=== PATIENT | female | born 1985 | race Caucasian/White ===

== ENCOUNTER 2017-01-29 22:36 | Emergency (ER) | payer SELFPAY ==
[~2017-01-29] VITALS: Wt 68.5 kg
[2017-01-30] MEDS ORDERED: ONDANSETRON (ODT) 4 MG TAB ODT STA (00:06)
[2017-01-30] MEDS ORDERED: FAMOTIDINE 20 MG TAB PO ONE (00:30)
[2017-01-30] MEDS ORDERED: LIDOCAINE/MYLANTA 40 ML BTL PO ONE (00:30)
[2017-01-30 00:32] LABS: ADD SCAN DIFF NO
[2017-01-30 00:35] LABS: BASOPHILS % 0.3 % (0.0-2.0); EOSINOPHILS # 0.2 10^3/ul (0.0-0.5); EOSINOPHILS % 1.7 % (0.0-7.0); HEMATOCRIT 39.9 % (37.0-47.0); HEMOGLOBIN 12.5 g/dl (12.0-16.0); LYMPHOCYTES # 2.5 10^3/ul (0.8-2.9); LYMPHOCYTES % 28.4 % (15.0-51.0); MEAN CORPUSCULAR HEMOGLOBIN 27.5 pg (29.0-33.0); MEAN CORPUSCULAR HGB CONC 31.3 g/dl (32.0-37.0); MEAN CORPUSCULAR VOLUME 87.9 fl (82.0-101.0); MEAN PLATELET VOLUME 10.8 fl (7.4-10.4); MONOCYTE # 0.6 10^3/ul (0.3-0.9); MONOCYTES % 6.7 % (0.0-11.0); NEUTROPHIL # 5.5 10^3/ul (1.6-7.5); NEUTROPHILS % 62.4 % (39.0-77.0); PLATELET COUNT 186 10^3/UL (140-415); RED BLOOD COUNT 4.54 10^6/ul (4.20-5.40); RED CELL DISTRIBUTION WIDTH 12.8 % (11.5-14.5); WHITE BLOOD COUNT 8.8 10^3/ul (4.8-10.8)
[2017-01-30 00:53] LABS: ALANINE AMINOTRANSFERASE 70 IU/L (13-69); ALBUMIN 4.7 g/dl (3.3-4.9); ALKALINE PHOSPHATASE 69 IU/L (42-121); ANION GAP 19 (8-16); ASPARTATE AMINO TRANSFERASE 46 IU/L (15-46); BILIRUBIN,INDIRECT 0.1 mg/dl (0-1.1); BILIRUBIN,TOTAL 0.1 mg/dl (0.2-1.3); BLOOD UREA NITROGEN 14 mg/dl (7-20); CALCIUM 9.5 mg/dl (8.4-10.2); CARBON DIOXIDE 27 mmol/L (21-31); CHLORIDE 99 mmol/L (97-110); CREATININE 0.67 mg/dl (0.44-1.00); GLUCOSE 93 mg/dl (70-220); POTASSIUM 4.4 mmol/L (3.5-5.1); SODIUM 141 mmol/L (135-144); TOTAL PROTEIN 7.3 g/dl (6.1-8.1)
[2017-01-30 01:13] LABS: TROPONIN-I < 0.012 ng/ml (0.00-0.12)
--- NOTE | 2017-01-30 01:35 | RADRPT ---
PROCEDURE: ULTRASOUND LIMITED ABDOMEN CLINICAL INDICATION: 31-year-old female with abdominal pain. TECHNIQUE: Multiple sonographic of the right upper quadrant of the abdomen were obtained. The imag es were reviewed on a PACS workstation. COMPARISON: None. FINDINGS: The pancreas is partially visualized and is otherwise without abnormal echogenicity. The liver displays normal echogenicity. The liver measures 16.1 cm in length. No evidence of intrah epatic biliary ductal dilatation is seen. The portal and hepatic veins are unremarkable. The gallbladder demonstrates no wall thickening, sludge, nor stones. No pericholecystic fluid is see n. The common bile duct measures 2.1 mm and is not dilated. The right kidney displays normal echogenicity. The right kidney measures 9.7 cm in maximal length. N o caliectasis or hydronephrosis is seen. There is an echogenic focus within the lower pole of the ri ght kidney measuring 6 mm presumably representing a nonobstructing calculus. No free fluid is seen. IMPRESSION: Probable nonobstructing right lower pole renal calculus. .Keo Sinha MD, Date Time Electronically viewed and signed by .Keo Sinha MD, on 01/30/2017 01:34 .M/
[2017-01-30 02:07] LABS: ADD UMIC NO; UR ASCORBIC ACID NEGATIVE (NEGATIVE); UR BACTERIA FEW /HPF (NONE SEEN); UR BILIRUBIN (Dip) NEGATIVE (NEGATIVE); UR BLOOD (Dip) NEGATIVE (NEGATIVE); UR CLARITY SLIGHTLY CLOUDY (CLEAR); UR COLOR STRAW (YELLOW); UR GLUCOSE (Dip) NEGATIVE (NEGATIVE); UR KETONES (Dip) NEGATIVE (NEGATIVE); UR LEUKOCYTE ESTERASE (Dip) NEGATIVE Leu/ul (NEGATIVE); UR NITRITE (Dip) NEGATIVE (NEGATIVE); UR RBC 1 /HPF (0-5); UR SPECIFIC GRAVITY (Dip) 1.012 (1.003-1.030); UR TOTAL PROTEIN (Dip) NEGATIVE (NEGATIVE); UR UROBILINOGEN (Dip) NEGATIVE (NEGATIVE)
[2017-01-30] MEDS ORDERED: IBUP-1542 PO (02:25)
[2017-01-30] MEDS ORDERED: ONDA4TAB14 PO (02:26)
--- NOTE | 2017-01-30 02:37 | ERD ---
ER Documentation Chief Complaint Date/Time DATE: 01/30/17 TIME: 02:30 Chief Complaint ABD BLOATING N/V X 5 HRS HPI Patient is a 31-year-old female who presents to the emergency department with right upper quadrant abdominal pain, abdominal bloating, nausea and vomiting 5 hours. Reports 3 episodes of nonbloody nonbilious vomiting. Patient states the pain is in her right upper quadrant and epigastric region. Patient states the pain was severe after eating dinner however does slightly resolved at this time. Patient describes the pain to be throbbing in nature. Patient denies any fevers, chills, chest pain, shortness of breath, loss of consciousness. Patient denies any dysuria or diarrhea. Since last menstrual period was approximately 1 month ago. Patient returned from a trip to [place] to this morning. Patient is also new to this country and states that she established residency in the [facility] at the beginning of December. ROS All systems reviewed and are negative except as per history of present illness. Medications Home Meds Active Scripts Ondansetron (Ondansetron Odt) 4 Mg Tab.rapdis, 4 MG PO Q6H Y for NAUSEA AND/OR VOMITING, #10 TAB Prov:LIBAN ALMAZAN PA-C 01/30/17 Ibuprofen* (Motrin*) 600 Mg Tab, 600 MG PO Q6, #20 TAB Prov:LIBAN ALMAZAN PA-C 01/30/17 Allergies Allergies: Coded Allergies: No Known Allergy (Unverified , 01/29/17) PMhx/Soc History of Surgery: No Hx Neurological Disorder: No Hx Respiratory Disorders: No Hx Cardiac Disorders: No Hx Psychiatric Problems: No Hx Miscellaneous Medical Probl: No Hx Alcohol Use: No Hx Substance Use: No Hx Tobacco Use: No Smoking Status: Never smoker FmHx Family History: No diabetes Physical Exam Vitals Vital Signs Date Time Temp Pulse Resp B/P Pulse Ox O2 Delivery O2 Flow Rate FiO2 01/29/17 22:40 98.0 87 18 128/81 100 Physical Exam GENERAL: Well-developed, well-nourished female. Appears in no acute distress. HEAD: Normocephalic, atraumatic. EYES: Pupils are equally reactive bilaterally. EOMs grossly intact. No conjunctival erythema. ENT: Moist mucous membranes. No uvula deviation. No kissing tonsils. NECK: Supple. No meningismus. Normal range of motion of the neck. LUNG: Clear to auscultation bilaterally. No rhonchi, wheezing, rales or coarse breath sounds. HEART: Regular rate and rhythm. No murmurs, rubs or gallops. ABDOMEN:. Soft and nondistended. Tender to palpation in the right upper quadrant. Positive bowel sounds in all four quadrants. No rebound tenderness, no guarding. (-) McBurney's point tenderness. No CVA tenderness. BACK: No midline tenderness. EXTREMITIES: Equal pulses bilaterally. No peripheral clubbing, cyanosis or edema. No unilateral leg swelling. NEUROLOGIC: Alert and oriented. Moving all four extremities without any difficulty. Normal speech. Steady gait. SKIN: Normal color. Warm and dry. No rashes or lesions. Result Diagram: 01/30/17 0025 01/30/17 0025 Results 24 hrs Laboratory Tests Test 01/30/17 00:19 01/30/17 00:25 Urine Color STRAW Urine Clarity SLIGHTLY CLOUDY Urine pH 7.0 Urine Specific [place] 1.012 Urine Ketones NEGATIVEmg/dL Urine Nitrite NEGATIVEmg/dL Urine Bilirubin NEGATIVEmg/dL Urine Urobilinogen NEGATIVEmg/dL Urine Leukocyte Esterase NEGATIVELeu/ul Urine Microscopic RBC 1/HPF Urine Microscopic WBC 0/HPF Urine Bacteria FEW/HPF Urine Hemoglobin NEGATIVEmg/dL Urine Glucose NEGATIVEmg/dL Urine Total Protein NEGATIVEmg/dl White Blood Count 8.810^3/ul Red Blood Count 4.5410^6/ul Hemoglobin 12.5g/dl Hematocrit 39.9% Mean Corpuscular Volume 87.9fl Mean Corpuscular Hemoglobin 27.5pg Mean Corpuscular Hemoglobin Concent 31.3g/dl Red Cell Distribution Width 12.8% Platelet Count 76706^3/UL Mean Platelet Volume 10.8fl Neutrophils % 62.4% Lymphocytes % 28.4% Monocytes % 6.7% Eosinophils % 1.7% Basophils % 0.3% Nucleated Red Blood Cells % 0.0/100WBC Neutrophils # 5.510^3/ul Lymphocytes # 2.510^3/ul Monocytes # 0.610^3/ul Eosinophils # 0.210^3/ul Basophils # 0.010^3/ul Nucleated Red Blood Cells # 0.010^3/ul Sodium Level 141mmol/L Potassium Level 4.4mmol/L Chloride Level 99mmol/L Carbon Dioxide Level 27mmol/L Anion Gap 19 Blood Urea Nitrogen 14mg/dl Creatinine 0.67mg/dl Glucose Level 93mg/dl Calcium Level 9.5mg/dl Total Bilirubin 0.1mg/dl Direct Bilirubin 0.00mg/dl Indirect Bilirubin 0.1mg/dl Aspartate Amino Transf (AST/SGOT) 46IU/L Alanine Aminotransferase (ALT/SGPT) 70IU/L Alkaline Phosphatase 69IU/L Troponin I < 0.012ng/ml Total Protein 7.3g/dl Albumin 4.7g/dl Globulin 2.60g/dl Albumin/Globulin Ratio 1.80 Lipase 97U/L Current Medications Medications (Trade) Dose Ordered Sig/Pily Route PRN Reason Start Time Stop Time Status Last Admin Dose Admin Miscellaneous Medication (Gi Cocktail (2)) 40 ml ONCE ONCE PO 01/30/17 00:30 01/30/17 00:31 DC 01/30/17 01:16 Famotidine (Pepcid) 20 mg ONCE ONCE PO 01/30/17 00:30 01/30/17 00:31 DC 01/30/17 01:16 Ondansetron HCl (Zofran Odt) 4 mg ONCE STAT ODT 01/30/17 00:06 01/30/17 00:11 DC 01/30/17 01:16 Procedures/MDM ED COURSE: The patient was stable throughout ED course. I kept the patient and/or family informed of laboratory and diagnostic imaging results throughout the ED course. DIAGNOSTIC IMAGING: Read by radiologist. DIAGNOSTIC IMAGING REPORT Patient: CHA NAVAS : 1985 Age: 31 Sex: F [id number] DOS: 01/30/17 0003 Ordering MD: LIBAN ALMAZAN PA-C Location: [facility] Room/Bed: PROCEDURE: ULTRASOUND LIMITED ABDOMEN CLINICAL INDICATION: 31-year-old female with abdominal pain. TECHNIQUE: Multiple sonographic of the right upper quadrant of the abdomen were obtained. The images were reviewed on a PACS workstation. COMPARISON: None. FINDINGS: The pancreas is partially visualized and is otherwise without abnormal echogenicity. The liver displays normal echogenicity. The liver measures 16.1 cm in length. No evidence of intrahepatic biliary ductal dilatation is seen. The portal and hepatic veins are unremarkable. The gallbladder demonstrates no wall thickening, sludge, nor stones. No pericholecystic fluid is seen. The common bile duct measures 2.1 mm and is not dilated. The right kidney displays normal echogenicity. The right kidney measures 9.7 cm in maximal length. No caliectasis or hydronephrosis is seen. There is an echogenic focus within the lower pole of the right kidney measuring 6 mm presumably representing a nonobstructing calculus. No free fluid is seen. IMPRESSION: Probable nonobstructing right lower pole renal calculus. .Keo Sinha MD, MD Date Time Electronically viewed and signed by .Keo Sinha MD, on 01/30/2017 01:34 .M/ CC: LIBAN ALMAZAN PA-C MEDICATIONS GIVEN: GI Cocktail, Pepcid, Zofran Patient tolerated medication well with no adverse reactions. MEDICAL DECISION MAKING: This is a 31-year-old female presents to the ED with right upper quadrant pain, nausea and vomiting 5 hours. Patient does report recent travel. Vital signs were reviewed. Patient is afebrile. CBC showed no evidence of systemic infection or severe anemia. CMP showed no evidence of electrolyte abnormalities, severe acidosis, alkalosis, renal failure. Notes he was noted to be 72. Patient had no evidence of acute pancreatitis. test was negative. Troponin was negative. Urinalysis showed 1+ RBCs, no WBCs. Gallbladder ultrasound showed probable nonobstructing right lower pole renal calculus. Patient did report improvement of symptoms upon receiving medication. At this time, patient's presentation was consistent with renal calculus. Low suspicion for acute coronary syndrome, lower lobe pneumonia, DKA, bowel obstruction, cholecystitis, choledocholithiasis, biliary colic, hepatic abscess, pancreatitis, diverticulitis, UTI, pyelonephritis, nephrolithiasis, , ectopic . Unable to rule out PUD at this time. She was given a copy of all blood work and imaging studies obtained today. Patient was advised to follow-up with the state patrol officer or GI specialist if her symptoms persist. Referral information given. PRESCRIPTIONS: Ibuprofen, Zofran DISCHARGE: At this time, patient is stable for discharge and outpatient management. I have instructed the patient to follow-up with his/her primary care physician in 1-2 days. I have instructed the patient to promptly return to the ER at any time for any new or worsening symptoms including increased pain, nausea, vomiting, diarrhea, fever, weakness or LOC. The patient and/or family expressed understanding of and agreement with this plan. All questions were answered. Home care instructions were provided. Departure Diagnosis: Primary Impression: Renal calculus Additional Impression: Right upper quadrant pain Condition: Stable Patient Instructions: Understanding Kidney Stones Referrals: ANJELICA DUVALL MD,CELIO ENGEL,SUDHIR DOMINGUEZ,AWA DAVID,APRIL HOLLIS,TYLER PLATA,HILDA CANCHOLA [facility] YOU HAVE RECEIVED A MEDICAL SCREENING EXAM AND THE RESULTS INDICATE THAT YOU DO NOT HAVE A CONDITION THAT REQUIRES URGENT TREATMENT IN THE EMERGENCY DEPARTMENT. FURTHER EVALUATION AND TREATMENT OF YOUR CONDITION CAN WAIT UNTIL YOU ARE SEEN IN YOUR DOCTORS OFFICE WITHIN THE NEXT 1-2 DAYS. IT IS YOUR RESPONSIBILITY TO MAKE AN APPOINTMENT FOR FOLOW-UP CARE. IF YOU HAVE A PRIMARY DOCTOR --you should call your primary doctor and schedule an appointment IF YOU DO NOT HAVE A PRIMARY DOCTOR YOU CAN CALL OUR PHYSICIAN REFERRAL HOTLINE AT IF YOU CAN NOT AFFORD TO SEE A PHYSICIAN YOU CAN CHOSE FROM THE FOLLOWING [facility] [address] [facility]. [facility] [address] [facility] [facility] [address] [facility] [facility] [address]. [facility] [address] [facility]. [facility]. [address] [facility] YOU HAVE RECEIVED A MEDICAL SCREENING EXAM AND THE RESULTS INDICATE THAT YOU DO NOT HAVE A CONDITION THAT REQUIRES URGENT TREATMENT IN THE EMERGENCY DEPARTMENT. FURTHER EVALUATION AND TREATMENT OF YOUR CONDITION CAN WAIT UNTIL YOU ARE SEEN IN YOUR DOCTORS OFFICE WITHIN THE NEXT 1-2 DAYS. IT IS YOUR RESPONSIBILITY TO MAKE AN APPOINTMENT FOR FOLOW-UP CARE. IF YOU HAVE A PRIMARY DOCTOR --you should call your primary doctor and schedule and appointment IF YOU DO NOT HAVE A PRIMARY DOCTOR YOU CAN CALL OUR PHYSICIAN REFERRAL HOTLINE AT . IF YOU CAN NOT AFFORD TO SEE A PHYSICIAN YOU CAN CHOSE FROM THE FOLLOWING [facility] INSTITUTIONS: [facility] [address] [place] [address] [facility] [address] [place] [address] [facility] [address] [place] [address] Additional Instructions: Call your primary care doctor TOMORROW for an appointment during the next 1-2 days.See the doctor sooner or return here if your condition worsens before your appointment time. LIBAN ALMAZAN PA-C Jan 30, 2017 02:37
[2017-01-30 03:05] VITALS: BP 130/82; PULSE 80; RESP 18
== END 2017-01-30 03:06 | disposition home or self-care (01) ==
LOC: FTE 22:36
DX: N20.0 Calculus of kidney (principal); R11.2 Nausea with vomiting, unspecified
CPT/HCPCS: 76705; 80053; 81001; 81003; 83690; 84484; 85025